=== PATIENT | male | born 1960 | race African-American/Black ===

== ENCOUNTER 2016-10-14 08:25 | Emergency (ER) | payer MEDICARE, MEDICAID ==
[2016-10-14 08:39] VITALS: BMI 39.7
--- NOTE | 2016-10-14 11:11 | DIRPT ---
CLINICAL DATA: 56-year-old male with 5 days of calf pain EXAM: LEFT LOWER EXTREMITY VENOUS DOPPLER ULTRASOUND TECHNIQUE: Jimenez-scale sonography with graded compression, as well as color Doppler and duplex ultrasound were performed to evaluate the lower extremity deep venous systems from the level of the common femoral vein and including the common femoral, femoral, profunda femoral, popliteal and calf veins including the posterior tibial, peroneal and gastrocnemius veins when visible. The superficial great saphenous vein was also interrogated. Spectral Doppler was utilized to evaluate flow at rest and with distal augmentation maneuvers in the common femoral, femoral and popliteal veins. COMPARISON: None. FINDINGS: Contralateral Common Femoral Vein: Respiratory phasicity is normal and symmetric with the symptomatic side. No evidence of thrombus. Normal compressibility. Common Femoral Vein: No evidence of thrombus. Normal compressibility, respiratory phasicity and response to augmentation. Saphenofemoral Junction: No evidence of thrombus. Normal compressibility and flow on color Doppler imaging. Profunda Femoral Vein: No evidence of thrombus. Normal compressibility and flow on color Doppler imaging. Femoral Vein: No evidence of thrombus. Normal compressibility, respiratory phasicity and response to augmentation. Popliteal Vein: Proximal popliteal vein is compressible and patent. However, echogenic material fills the lumen of the distal popliteal vein. This segment of the vessel is nonocclusive and there is no evidence of flow on color Doppler imaging. Findings consistent with occlusive thrombus in the distal popliteal vein. Calf Veins: Nonocclusive thrombus extends into the posterior tibial veins. The peroneal veins are patent. Superficial Great Saphenous Vein: No evidence of thrombus. Normal compressibility and flow on color Doppler imaging. Venous Reflux: None. Other Findings: None. IMPRESSION: Positive for deep venous thrombosis. There is focally occlusive thrombus in the distal popliteal artery with extension of nonocclusive thrombus into the posterior tibial veins in the proximal calf. Electronically Signed By: Madhu Tovar M.D. On: 10/14/2016 11:09
[2016-10-14 12:05] VITALS: TEMP 97.8
--- NOTE | 2016-10-14 12:21 | EDPRACDOC ---
- General Information Chief Complaint: Lower Leg Pain Stated Complaint: LT LEG PAIN Time Seen by Provider: 10/14/16 08:49 Information Source: Patient Home Medications: Home Medications Lisinopril/Hydrochlorothiazide [Zestoretic 20-25 mg Tablet] 1 tab PO QAM Tamsulosin HCl [Flomax] 0.4 mg PO QAM 02/27/15 Ipratropium/Albuterol Sulfate [Combivent Respimat] 2 puff INH BID PRN 01/02/16 Pantoprazole Sodium [Protonix] 40 mg PO BID 02/24/16 Fenofibrate Nanocrystallized [Tricor] 145 mg PO QAM 04/04/16 Fluoxetine HCl [Prozac] 40 mg PO QAM 04/04/16 Oxycodone HCl [Roxicodone] 15 mg PO Q6H PRN 07/08/16 Amitriptyline HCl 100 mg PO HS 08/13/16 Fluticasone Propionate [Flonase] 1 - 2 spray REID DAILY 08/13/16 Clopidogrel Bisulfate [Plavix] 75 mg PO DAILY #30 tablet 08/14/16 Docusate Sodium [Colace] 100 mg PO BID PRN #60 capsule 08/14/16 Metoprolol Tartrate [Lopressor] 12.5 mg PO BID #30 tablet 08/14/16 Dabigatran Etexilate Mesylate [Pradaxa] 150 mg PO BID #60 capsule 10/14/16 Oxycodone Immediate Release [Oxycodone Immediate Release (OxyIR)] 5 - 15 mg PO Q4H PRN #40 tab 10/14/16 Tiotropium [place] [Spiriva] 1 each INH DAILY 10/14/16 Allergies/Adverse Reactions: Allergies Allergy/AdvReac Type Severity Reaction Status Date / Time aspirin [From Sabrina Aspirin] Allergy Bleeding Verified 10/14/16 08:34 - History of Present Illness Onset: 5 days Mechanism: Reports: None Circumstances: Reports: Spontaneous History of: Reports: Arthritis Severity: Reports: Mild Able to Bear Weight: Fully Pain In: Reports: Leg. Denies: Foot, Ankle, Knee, Hip, Thigh, Joint Above, Joint Below Other History: PT IS CONCERNED HE HAS A BLOOD CLOT. ED Past Medical History - Patient Medical History Cardiac History: Reports: Atrial Fibrillation (ON [facility] EKG, AFLUTTER 03/21/16) , Hypertension, Stress Test (10/29/14: no ischemia. EF 50%.), Hypercholesterolemia Respiratory History: Reports: Asthma, COPD. Denies: Pneumonia GI/ History: Reports: Gastroesophageal Reflux, Ulcer Musculoskeletal History: Reports: Arthritis (neck back feet), Gout Psychological History: Reports: Anxiety. Denies: Depression, Substance Use Disorder Systemic History: Reports: Diabetes. Denies: Cancer Additional Past Medical History: Chronic Back Pain Surgical History: Reports: Hernia Surgery, Other (Both feet, KNEE) - Family Medical History Reports: Hypertension (Mother), Diabetes (Father), Cancer, Cardiac Disorders ( Mother with an [place].), Other (FATHER WITH DVT). Denies: Stroke - Social Medical History Smoking Status: Heavy tobacco smoker (5 or more cigarettes/day or daily pipe/ cigar) Social History: Denies: Cocaine Use (Use in the past but none now), Substance Use Disorder ETOH: None Substance Abuse: None Lives With: Family Lives In: Home EDM Review of Systems - Review of Systems ROS Negative Except as Marked: Yes All systems reviewed and were negative except as marked Respiratory: No Symptoms Reported. negative: Cough, Shortness of Breath Cardiovascular: negative: No Symptoms Reported - Physical Exam Constitutional: No apparent distress, Alert Last recorded Vital Signs: Last Vital Signs Temp 97.8 F 10/14/16 12:05 Pulse 49 L 10/14/16 12:05 Resp 18 10/14/16 12:05 BP 117/65 10/14/16 12:05 Pulse Ox 97 10/14/16 12:05 Oxygen Pulse Oxygen Saturation 97 O2 Device Room Air Oxygen Flow Rate Fraction of Inspired Oxygen ( FIO2) - Respiratory/Cardiovascular Respiratory: Normal - CTA Cardiovascular: Normal - GI Rectal Exam: Normal, Heme negative stool Stool: Brown ED Low Extremities Phys Exam - Lower Leg Bilateral Lower Leg Symptoms: Normal, Mild Tenderness. negative: Deformity, Moderate Tenderness, Severe Tenderness - Foot Bilateral Foot Symptoms: Normal - Diagnostic Imaging Leg Image interpreted by: Radiologist Patient Name: DEZ PINO LOC: ED : 1960 AGE: 56 Order Date:10/14/16 Date of Service: Report # [id number] Ord Physician: Loretta Sprague MD Exam # [id number] Emergency Physician: Loretta Sprague MD Exam(s): [id number] US/US EXTREM LOW VENOUS - L CLINICAL DATA: 56-year-old male with 5 days of calf pain EXAM: LEFT LOWER EXTREMITY VENOUS DOPPLER ULTRASOUND TECHNIQUE: Jimenez-scale sonography with graded compression, as well as color Doppler and duplex ultrasound were performed to evaluate the lower extremity deep venous systems from the level of the common femoral vein and including the common femoral, femoral, profunda femoral, popliteal and calf veins including the posterior tibial, peroneal and gastrocnemius veins when visible. The superficial great saphenous vein was also interrogated. Spectral Doppler was utilized to evaluate flow at rest and with distal augmentation maneuvers in the common femoral, femoral and popliteal veins. COMPARISON: None. FINDINGS: Contralateral Common Femoral Vein: Respiratory phasicity is normal and symmetric with the symptomatic side. No evidence of thrombus. Normal compressibility. Common Femoral Vein: No evidence of thrombus. Normal compressibility, respiratory phasicity and response to augmentation. Saphenofemoral Junction: No evidence of thrombus. Normal compressibility and flow on color Doppler imaging. Profunda Femoral Vein: No evidence of thrombus. Normal compressibility and flow on color Doppler imaging. Femoral Vein: No evidence of thrombus. Normal compressibility, respiratory phasicity and response to augmentation. Popliteal Vein: Proximal popliteal vein is compressible and patent. However, echogenic material fills the lumen of the distal popliteal vein. This segment of the vessel is nonocclusive and there is no evidence of flow on color Doppler imaging. Findings consistent with occlusive thrombus in the distal popliteal vein. Calf Veins: Nonocclusive thrombus extends into the posterior tibial veins. The peroneal veins are patent. Superficial Great Saphenous Vein: No evidence of thrombus. Normal compressibility and flow on color Doppler imaging. Venous Reflux: None. Other Findings: None. IMPRESSION: Positive for deep venous thrombosis. There is focally occlusive thrombus in the distal popliteal artery with extension of nonocclusive thrombus into the posterior tibial veins in the proximal calf. Electronically Signed By: Madhu Tovar M.D. On: 10/14/2016 11:09 Electronically Signed By: Madhu Tovar MD Electronically Signed Date/Time: 111 Dictate Date/Time: 10/14/16 1105 Technologist: Jose Francisco Carballo Transcribed By: Patsy Transcribed Date/Time: 10/14/16 1109 - Additional Information PATIENT CURRENTLY HAS A HISTORY OF DVT NO CLINICAL EVIDENCE OF PULMONARY EMBOLISM. HAS HISTORY OF GASTRIC ULCERS LAST EGD DEMONSTRATED THIS WAS HEALING IN MARCH. HE HAS NOT HAD ANY MELANOTIC STOOLS AT HOME. GUAIAC TEST TODAY DEMONSTRATES HEME NEGATIVE STOOL. PATIENT HAS HISTORY OF AFIB [facility] HAD WANT TO ANTICOAGULATE PREVIOUSLY BUT PATIENT IS WAS RESISTANT THEREFORE IS PLACED ON PLAVIX. GIVEN THAT PLAVIX WAS ACTUALLY FOR TREATMENT FOR ATRIAL FIB, THERE IS NO INDICATION TO CONTINUE IT NOW WE ARE STARTING THE PATIENT ON ANTICOAGULANTS. - Departure Disposition: Home Condition: Good Final Diagnosis: Left leg DVT Qualifiers: Affected thrombotic vein of extremity: popliteal Chronicity: acute Qualified Code(s): I82.432 - Acute embolism and thrombosis of left popliteal vein Instructions: Deep Venous Thrombosis (ED) Education/Counseling Given To: Patient Education/Counseling Given Regarding: Diagnosis, Treatment Referrals: Alek Knapp MD [Staff Physician] - One Week Prescriptions: Dabigatran Etexilate Mesylate [Pradaxa] 150 mg PO BID #60 capsule Oxycodone Immediate Release [Oxycodone Immediate Release (OxyIR)] 5 - 15 mg PO Q4H PRN #40 tab PRN Reason: Pain Additional Instructions: STOP PLAVIX STOP PLAVIX STOP PLAVIX!!!!! START PRADAXA, RETURN TO EMERGENCY DEPARTMENT FOR ANY CHEST PAIN CHEST PRESSURE SHORTNESS OF BREATH.
[2016-10-14] MEDS ORDERED: OXYCODONE HCL 5 MG TABLET PO ONE (12:23)
--- NOTE | 2016-10-14 12:27 | PCM.CARDCO ---
Consultation Date: 10/14/16 Requesting Physician: Araceli Baxter Supply Manager: Elton Payne Consult Reason: CHF - History of Present Illness She is a 56-year-old woman who had surgery for congenital heart disease approximately 20 years ago in [place] was described as an atrial septal defect. Her diagnoses include pulmonary artery hypertension however her last 2 echocardiograms do not support this diagnosis and 1 done in the last week had normal pulmonary artery systolic pressure. Other problems include atrial fibrillation with a previous stroke she is anticoagulated. She has had hypercapnic respiratory failure in the past and presented to the hospital with respiratory failure requiring intubation and had a serum sodium of 117 at that time. I am consult because of history of heart failure elevated BNP level and chest x-rays that her described as showing decompensated heart failure. Chief Complaint: Respiratory failure with intubation - Past Medical and Surgical History Cardiac History: Reports: Atrial Fibrillation (ON [facility] EKG, AFLUTTER 03/21/16) , Hypertension, Stress Test (10/29/14: no ischemia. EF 50%.), Hypercholesterolemia Respiratory History: Reports: Asthma, COPD. Denies: Pneumonia GI/ History: Reports: Gastroesophageal Reflux, Ulcer Systemic History: Reports: Diabetes. Denies: Cancer Musculoskeletal History: Reports: Arthritis (neck back feet), Gout Psychological History: Reports: Anxiety. Denies: Depression, Substance Use Disorder Past Surgical History: Reports: Hernia Surgery, Other (Both feet, KNEE) Allergies aspirin [From Harvinder Aspirin] Allergy (Verified 10/14/16 08:34) Bleeding PT STATES HE CAN TAKE AN 81MG CHEWABLE TAB BUT CAN NOT TAKE HARVINDER ASPIRIN FULL STRENGTH 325MG TAB. 01-25-16 [facility] Home Medications Lisinopril/Hydrochlorothiazide [Zestoretic 20-25 mg Tablet] 1 tab PO QAM Tamsulosin HCl [Flomax] 0.4 mg PO QAM 02/27/15 Ipratropium/Albuterol Sulfate [Combivent Respimat] 2 puff INH BID PRN 01/02/16 Pantoprazole Sodium [Protonix] 40 mg PO BID 02/24/16 Fenofibrate Nanocrystallized [Tricor] 145 mg PO QAM 04/04/16 Fluoxetine HCl [Prozac] 40 mg PO QAM 04/04/16 Oxycodone HCl [Roxicodone] 15 mg PO Q6H PRN 07/08/16 Amitriptyline HCl 100 mg PO HS 08/13/16 Fluticasone Propionate [Flonase] 1 - 2 spray REID DAILY 08/13/16 Clopidogrel Bisulfate [Plavix] 75 mg PO DAILY #30 tablet 08/14/16 Docusate Sodium [Colace] 100 mg PO BID PRN #60 capsule 08/14/16 Metoprolol Tartrate [Lopressor] 12.5 mg PO BID #30 tablet 08/14/16 Tiotropium [place] [Spiriva] 1 each INH DAILY 10/14/16 - Social History Smoking Status: Heavy tobacco smoker (5 or more cigarettes/day or daily pipe/ cigar) Social History: Denies: Cocaine Use (Use in the past but none now), Substance Use Disorder - Family History Reports: Hypertension (Mother), Diabetes (Father), Cancer, Cardiac Disorders ( Mother with an [place].). Denies: Stroke - Physical Exam Exam: Last Vital Signs Temp 97.8 F 10/14/16 12:05 Pulse 49 L 10/14/16 12:05 Resp 18 10/14/16 12:05 BP 117/65 10/14/16 12:05 Pulse Ox 97 10/14/16 12:05 Intake & Output 10/13/16 10/14/16 10/14/16 23:59 07:59 15:59 Patient's weight 269 lb
[2016-10-14] MEDS ORDERED: DABIGATRAN 75 MG CAP PO ONE (12:58)
[2016-10-14] MEDS ORDERED: APIXABAN 5 MG TABLET PO SCH (13:00)
[2016-10-14 13:21] VITALS: BP 121/79; PULSE 55
== END 2016-10-14 13:20 | disposition home or self-care (01) ==
LOC: ED 08:25
DX: I82.432 Acute embolism and thrombosis of left popliteal vein (principal)
CPT/HCPCS: 82270; 93971; 99283; A9270; J3490